=== PATIENT | male | born 1980 | race African-American/Black ===

== ENCOUNTER 2019-12-05 15:56 | Emergency (ER) | payer OTHER, SELFPAY ==
[2019-12-05 16:19] VITALS: BP 202/109; PULSE 70; RESP 14; TEMP 37.2; O2SAT 100
--- NOTE | 2019-12-05 17:07 | ECG_ITS ---
Measurements Intervals [place] Rate: 56 P: 42 [place]: 135 QRS: -11 QRSD: 113 T: 247 QT: 408 QTc: 394 Interpretive Statements SINUS BRADYCARDIA INCOMPLETE RIGHT BUNDLE BRANCH BLOCK ST-T WAVE ABNORMALITY IN ANTEROLATERAL LEADS- CONSIDER ISCHEMIA ABNORMAL ECG Electronically Signed On 12-05-2019 19:46:33 [employer] by Anthony Richards D.O.
[2019-12-05 17:24] LABS: Basophils Percent Auto 0.3 % (0.2-1.2); Eosinophils Absolute Auto 0.2 K/mm3 (0-0.3); Eosinophils Percent Auto 3.1 % (0-4.4); Hematocrit 44.7 % (42.0-52.0); Immature Granulocyte Absolute 0.01 K/mm3 (0.00-0.031); Immature Granulocyte Percent A 0.2 % (0-0.5); Lymphocytes Percent Auto 30.6 % (18.3-44.2); Mean Corpuscular HGB Conc 31.3 g/dl (32-36); Mean Corpuscular Hemoglobin 28.8 pg (26-34); Mean Platelet Volume 12.1 fl (7.4-10.4); Monocytes Absolute Auto 0.6 K/mm3 (0.1-0.6); Monocytes Percent Auto 9.3 % (2.6-8.5); Neutrophils Absolute Auto 3.3 K/mm3 (1.3-6.7); Neutrophils Percent Auto 56.5 % (45.5-73.1); Platelet Count Result 140 k/mm3 (150-375); Red Blood Count 4.86 M/mm3 (4.6-6.20); White Blood Count 5.9 K/mm3 (4.5-10.0)
[2019-12-05 17:29] VITALS: BP 190/93; PULSE 61; RESP 15; O2SAT 98
--- NOTE | 2019-12-05 17:34 | ED.GENADULT ---
HPI - General Adult General Chief complaint: Recheck/Abnormal Lab/Rx <Anton Lin MD - Last Filed: 12/05/19 17:52> Stated complaint: high bp <Anton Lin MD - Last Filed: 12/05/19 17:52> Time Seen by Provider: 12/05/19 17:00 <Anton Lin MD - Last Filed: 12/05/19 17:52> Source: patient and family <Anton Lin MD - Last Filed: 12/05/19 17:52> Mode of arrival: ambulatory <Anton Lin MD - Last Filed: 12/05/19 17:52> Limitations: no limitations <Anton Lin MD - Last Filed: 12/05/19 17:52> History of Present Illness HPI narrative: 39-year-old with a history of hypertension was sent from his doctor's office with the complaints of patient high blood pressure. Patient states that he has seen his primary doctor who recommended to come to the ER. Patient presently denies any headache, chest pain or shortness of breath. Patient states daily he takes losartan 50 mg and clonidine 0.2 mg 3 times a day. He denies any other complaints at this time. <Anton Lin MD - Last Filed: 12/05/19 17:52> Associated symptoms: denies other symptoms <Anton Lin MD - Last Filed: 12/05/19 17:52> Related Data Home medications: Home Medications Medication Instructions Recorded Confirmed clonidine HCl 12/05/19 losartan 12/05/19 ranitidine HCl 12/05/19 <Anton Lin MD - Last Filed: 12/05/19 17:52> Allergies/adverse reactions: Allergies Allergy/AdvReac Type Severity Reaction Status Date / Time No Known Allergies Allergy Verified 12/05/19 16:23 <Anton Lin MD - Last Filed: 12/05/19 17:52> Review of Systems Constitutional: Constitutional: Reports no additional constitutional complaints <MD Theron Stevens Last Filed: 12/05/19 17:52> Eyes: Eyes: Reports no additional eye complaints <Anton Lin MD - Last Filed: 12/05/19 17:52> ENT: Reports system reviewed and no additional complaints, except as documented <Anton Lin MD - Last Filed: 12/05/19 17:52> Cardiovascular: Cardiovascular: Reports no additional cardiovascular complaints <Anton Lin MD - Last Filed: 12/05/19 17:52> Respiratory: Respiratory: Reports no additional respiratory complaints <Anton Lni MD - Last Filed: 12/05/19 17:52> Gastrointestinal: Gastrointestinal: Reports no additional gastrointestinal complaints <Anton Lin MD - Last Filed: 12/05/19 17:52> Musculoskeletal: Musculoskeletal: Reports no additional musculoskeletal complaints <Anton Lin MD - Last Filed: 12/05/19 17:52> Integumentary/Breasts: Skin/Breast: Reports system reviewed and no additional complaints, except as docu <Anton Lin MD - Last Filed: 12/05/19 17:52> Neurologic: Reports system reviewed and no additional complaints, except as documented <Anton Lin MD - Last Filed: 12/05/19 17:52> Psychiatric: Psychiatric: Reports no additional psychiatric complaints <Anton Lin MD - Last Filed: 12/05/19 17:52> Endocrine: Endocrine: Reports no additional endocrine complaints <Anton Lin MD - Last Filed: 12/05/19 17:52> PMFSH Social History Social History: Social History Gender identity (if verbalized by the patient): Male <Anton Lin MD - Last Filed: 12/05/19 17:52> Exam Narrative: Exam Narrative: GENERAL: Well-appearing, well-nourished, and in no acute distress. HEAD: Normocephalic, atraumatic. EYES: PERRLA and EOMI. ENT: Nares clear, no rhinorrhea or epistaxis. Mucous membranes moist. NECK: Supple. CHEST: Clear to auscultation. No respiratory distress. HEART: Regular rate and rhythm. No murmur heard. Normal peripheral pulses. ABDOMEN: Soft, nontender, nondistended, normal active bowel sounds. EXTREMITIES: Normal range of motion. No edema. SKIN: Warm, dry, no rash. NEURO: No focal deficits. Alert and oriented x3. PSYCH: Normal mood and affect. <Anton Lin MD - Last Filed: 12/05/19 17:52> Course Consultations
[2019-12-05] MEDS: hydrALAZINE HCL 20 MG/ML VIAL IV PUSH (17:38)
[2019-12-05 17:41] LABS: Alanine Aminotransferase 34 U/L (4-50); Albumin Level 4.3 g/dL (3.5-5.1); Alkaline Phosphatase 67 U/L (38-126); Aspartate Amino Transferase 29 U/L (17-59); Bilirubin,Total 1.1 mg/dL (0.2-1.3); Blood Urea Nitrogen 19 mg/dL (9-20); Calcium 9.1 mg/dL (8.4-10.2); Carbon Dioxide 26 mmol/L (22-30); Chloride 104 mmol/L (98-107); Estimated CRCL calculation 77 ml/min; Estimated Glomerular Filt Rate > 60; Glucose 83 mg/dL (75-110); Potassium 4.1 mmol/L (3.4-5.0); Sodium 139 mmol/L (137-145)
[2019-12-05 17:46] LABS: NT Pro B Type Natriuretic Pept 229 PG/ML (5-100)
[2019-12-05 17:46] LABS: Add Urine Microscopic? NO; Appearance Urine Clear (Clear); Bilirubin Urine Negative (Negative); Blood Urine Negative (Negative); Color Urine Yellow (Yellow); Glucose Urine UA Negative (Negative); Ketones Urine Negative (Negative); Leukocyte Esterase Ur Negative LEU/UL (Negative); Nitrate Urine Negative (Negative); Protein Urine Negative (Negative); Specific Grav Ur 1.018 (1.001-1.035); Urobilinogen Urine Negative mg/dL (<2.0)
[2019-12-05 17:50] LABS: Troponin I < 0.012 ng/mL (0.000-0.034)
[2019-12-05 18:05] VITALS: BP 170/73; PULSE 76; RESP 20; O2SAT 100
[2019-12-05 18:12] LABS: Amphetamine Screen Urine Negative (Negative); Barbiturate Screen Urine Negative (Negative); Benzodiazepines Screen Urine Negative (Negative); Cannabinoid Screen Urine Positive (Negative); Cocaine Screen Urine Negative (Negative); Methadone Screen Urine Negative (Negative); Opiate Screen Urine Negative (Negative); Phencyclidine Screen Urine Negative (Negative)
[2019-12-05 18:56] VITALS: BP 155/74; PULSE 65; RESP 23; O2SAT 99
--- NOTE | 2019-12-05 19:02 | ECG_ITS ---
Measurements Intervals [place] Rate: 63 P: 43 [place]: 126 QRS: -12 QRSD: 113 T: 265 QT: 397 QTc: 407 Interpretive Statements SINUS RHYTHM INCOMPLETE RIGHT BUNDLE BRANCH BLOCK MINIMAL Q WAVES- LATERAL LEADS BORDERLINE ST-T WAVE ABNORMALITY- DIFFUSE LEADS BORDERLINE ECG Electronically Signed On 12-05-2019 19:46:04 [facility] by Anthony Richards D.O.
[2019-12-05 20:00] VITALS: BP 160/78; PULSE 62; RESP 18; O2SAT 99
== END 2019-12-05 20:05 | disposition home or self-care (01) ==
PROVIDERS: Physician Assistant; Emergency Provider Family Medicine; PCP Family Medicine
DX: I16.0 Hypertensive urgency (principal); R00.1 Bradycardia, unspecified; I45.10 Unspecified right bundle-branch block; R94.31 Abnormal electrocardiogram [ECG] [EKG]
CPT/HCPCS: 36415; 80053; 80307; 81003; 83880; 84484; 85025; 93005; 96374; 99284; J0360